=== PATIENT | female | born 1960 | race African-American/Black ===

== ENCOUNTER 2022-12-15 07:40 | Outpatient (CLI) | payer OTHER | END 2022-12-15 07:41 | disposition home or self-care (01) | LOC: CSHMRI 07:40 | PROVIDERS: ATTEND Family Medicine | DX: M54.32 Sciatica, left side (principal); M51.36 Other intervertebral disc degeneration, lumbar region | CPT/HCPCS: 72148 ==

== ENCOUNTER 2024-01-05 12:47 | Emergency (ER) | payer OTHER ==
[2024-01-05] MEDS ORDERED: traMADol HCl 50 MG TAB ONE (13:14)
[2024-01-05] MEDS ORDERED: HYDROcodone/Acetaminophen 5/325 mg Tablet ONE (13:40)
[2024-01-05] MEDS ORDERED: Ketorolac Tromethamine 30 MG (1 mL) VIAL ONE (13:40)
== END 2024-01-05 15:17 | disposition home or self-care (01) ==
LOC: CSHERS 12:47
DX: M25.511 Pain in right shoulder (principal); I10 Essential (primary) hypertension; E11.40 Type 2 diabetes mellitus with diabetic neuropathy, unspecified
CPT/HCPCS: 96372; J1885

== ENCOUNTER 2024-02-01 08:19 | Outpatient (CLI) | payer OTHER | END 2024-02-01 08:20 | disposition home or self-care (01) | LOC: CSHMAMMO 08:19 | PROVIDERS: ATTEND Family Medicine | DX: Z12.31 Encounter for screening mammogram for malignant neoplasm of breast (principal); Z85.3 Personal history of malignant neoplasm of breast; Z91.89 Other specified personal risk factors, not elsewhere classified; Z98.890 Other specified postprocedural states | CPT/HCPCS: 77063; 77067 ==

== ENCOUNTER 2024-03-07 10:33 | Emergency (ER) | payer OTHER ==
[2024-03-07 11:10] LABS: #Basophils 0.08 10x3/uL (0.0-0.2); #Eosinophils 0.21 10x3/uL (0.0-0.5); #Neutrophils 10.02 10x3/uL (1.5-8.4); %Basophils 0.6 % (0.0-2.0); %Eosinophils 1.5 % (0.0-6.0); %Lymphocytes 21.3 % (18.0-47.0); %Monocytes 5.6 % (0.0-10.0); Hemoglobin 11.7 g/dL (12.0-15.5); Mean Corpuscular Hemoglobin 25.2 pg (27.0-33.0); Mean Corpuscular Volume 84.1 fL (81.6-98.3); Mean Platelet Volume 9.5 fL (7.4-10.4); Platelet Count 363 10x3/uL (150-450); RBC Distribution Width 17.6 % (11.5-14.5); Red Blood Cell (RBC) Count 4.64 10x6/uL (3.90-5.03); White Blood Cell (WBC) Count 14.3 10x3/uL (3.5-10.5)
[2024-03-07 11:26] LABS: ALT (SGPT) 15 U/L (8-55); AST (SGOT) 13 U/L (5-34); Albumin 3.4 g/dL (3.4-4.8); Alkaline Phosphatase 153 U/L (40-110); Anion Gap 15 mmol/L (10-20); BUN (Urea Nitrogen) 26 mg/dL (9.8-20.1); Bilirubin, Total 0.4 mg/dL (0.2-1.2); Calc. Creatinine Clearance 0 mL/min (70-130); Calcium 9.7 mg/dL (7.8-10.44); Carbon Dioxide 21 mmol/L (23-31); Chloride 105 mmol/L (98-107); Estimated GFR 28; Globulin 3.7 g/dL (2.4-3.5); Glucose 118 mg/dL (80-115); Potassium 5.4 mmol/L (3.5-5.1); Protein, Total 7.1 g/dL (5.8-8.1); Sodium 136 mmol/L (136-145)
[2024-03-07 11:28] LABS: Troponin I Less than 0.010 ng/mL (< 0.028)
[2024-03-07] MEDS ORDERED: dilTIAZem 25 MG/5 ML VIAL ONE (11:31)
[2024-03-07] MEDS ORDERED: dilTIAZem 125 MG/25 ML SDV ONE (12:30)
[2024-03-07] MEDS ORDERED: Acetaminophen 500 MG TAB ONE (16:10)
[2024-03-07] MEDS ORDERED: Amiodarone 150 MG/3 ML VIAL ONE (17:52)
[2024-03-07] MEDS ORDERED: Apixaban 5 MG TAB ONE (17:53)
== END 2024-03-07 19:16 | disposition home or self-care (01) ==
LOC: CSHERS 10:33
DX: I48.92 Unspecified atrial flutter (principal); K21.9 Gastro-esophageal reflux disease without esophagitis; I10 Essential (primary) hypertension; E11.9 Type 2 diabetes mellitus without complications; Z79.899 Other long term (current) drug therapy
CPT/HCPCS: 71045; 80053; 84484; 85025; 93005; 94760; 96365; 96366; 96375; 96376; J0282

== ENCOUNTER 2024-04-11 14:45 | Outpatient (CLI) | payer OTHER | END 2024-04-11 14:46 | disposition home or self-care (01) | LOC: CSHMRI 14:45 | PROVIDERS: ATTEND Nurse Practitioner Family | DX: M51.16 Intervertebral disc disorders with radiculopathy, lumbar region (principal); M47.26 Other spondylosis with radiculopathy, lumbar region; M47.27 Other spondylosis with radiculopathy, lumbosacral region; N94.9 Unspecified condition associated with female genital organs and menstrual cycle | CPT/HCPCS: 72148 ==

== ENCOUNTER 2024-05-16 09:18 | Outpatient (CLI) | payer OTHER | END 2024-05-16 09:19 | disposition home or self-care (01) | LOC: CSHCT 09:18 | PROVIDERS: ATTEND Student in an Organized Health Care Education/Training Program | DX: R18.8 Other ascites (principal) | CPT/HCPCS: 72193; 82565 ==

== ENCOUNTER 2025-02-07 07:47 | Outpatient (CLI) | payer OTHER | END 2025-02-07 07:48 | disposition home or self-care (01) | LOC: CSHMAMMO 07:47 | PROVIDERS: ATTEND Pathology Anatomic Pathology & Clinical Pathology | DX: Z12.31 Encounter for screening mammogram for malignant neoplasm of breast (principal); Z80.3 Family history of malignant neoplasm of breast; Z85.3 Personal history of malignant neoplasm of breast; Z91.89 Other specified personal risk factors, not elsewhere classified; Z98.890 Other specified postprocedural states | CPT/HCPCS: 77063; 77067 ==

== ENCOUNTER 2025-02-28 13:39 | Emergency (ER) | payer OTHER ==
[2025-02-28] MEDS ORDERED: Fluorescein Opthalmic Strip ONE (15:27)
[2025-02-28] MEDS ORDERED: Proparacaine 0.5% Opth 15 ML BOT ONE (15:27)
[2025-02-28 15:37] LABS: #Basophils 0.03 10x3/uL (0.0-0.2); #Eosinophils 0.18 10x3/uL (0.0-0.5); #Monocytes 0.69 10x3/uL (0.0-1.1); #Neutrophils 5.53 10x3/uL (1.5-8.4); %Basophils 0.4 % (0.0-2.0); %Eosinophils 2.1 % (0.0-6.0); %Lymphocytes 23.4 % (18.0-47.0); %Monocytes 8.1 % (0.0-10.0); %Neutrophils 65.3 % (40.0-75.0); Hematocrit 34.7 % (34.9-44.5); Hemoglobin 10.6 g/dL (12.0-15.5); Mean Corpuscular Hemoglobin 25.7 pg (27.0-33.0); Mean Corpuscular Volume 84.2 fL (81.6-98.3); Platelet Count 293 10x3/uL (150-450); Red Blood Cell (RBC) Count 4.12 10x6/uL (3.90-5.03); White Blood Cell (WBC) Count 8.47 10x3/uL (3.5-10.5)
[2025-02-28 15:59] LABS: ALT (SGPT) 11 U/L (Less than 34); AST (SGOT) 11 U/L (11-34); Albumin 3.0 g/dL (3.1-4.5); Alkaline Phosphatase 148 U/L (40-110); Anion Gap 13 mmol/L (10-20); BUN (Urea Nitrogen) 15 mg/dL (9.8-20.1); Bilirubin, Total 0.2 mg/dL (0.3-1.2); Calc. Creatinine Clearance 0 mL/min (70-130); Calcium 9.1 mg/dL (7.8-10.44); Carbon Dioxide 27 mmol/L (23-31); Chloride 105 mmol/L (98-107); Globulin 3.5 g/dL (2.4-3.5); Glucose 87 mg/dL (80-115); Potassium 4.1 mmol/L (3.5-5.1); Sodium 141 mmol/L (136-145)
[2025-02-28 16:05] LABS: Troponin I 0.012 ng/mL (< 0.028)
== END 2025-02-28 17:33 | disposition home or self-care (01) ==
LOC: CSHERS 13:39
DX: H11.32 Conjunctival hemorrhage, left eye (principal); R51.9 Headache, unspecified; R07.9 Chest pain, unspecified; E11.9 Type 2 diabetes mellitus without complications; I10 Essential (primary) hypertension; I48.91 Unspecified atrial fibrillation; C50.912 Malignant neoplasm of unspecified site of left female breast; Z75.3 Unavailability and inaccessibility of health-care facilities
CPT/HCPCS: 36415; 80053; 84484; 85025; 93005; 99284